=== PATIENT | female | born 1955 ===

== ENCOUNTER 2024-12-20 07:28 | Outpatient (CLI) | payer MEDICARE, BC ==
[2024-12-20] VITALS (17 sets, daily range): BP systolic 137–183; BP diastolic 63–109; PULSE 65–93
[2024-12-21 13:35] VITALS: BP 166/84; PULSE 91
[2024-12-21 13:36] VITALS: BP 181/71; PULSE 75
[2024-12-21 13:37] VITALS: BP 129/98; PULSE 72
[2024-12-21 13:39] VITALS: BP 143/93; PULSE 87
== END 2024-12-20 23:59 | disposition home or self-care (01) ==
LOC: CARD DIAG 07:28
PROVIDERS: ATTEND Internal Medicine Cardiovascular Disease
DX: R42 Dizziness and giddiness (principal)
CPT/HCPCS: 93660